=== PATIENT | male | born 1955 | race Caucasian/White ===

== ENCOUNTER 2016-09-22 15:34 | Emergency (ER) | payer MEDICARE, MEDICAID ==
[~2016-09-22] VITALS: Ht 177.8 cm; Wt 72.7 kg
[2016-09-22 15:38] VITALS: BP 129/76; PULSE 73; RESP 18; O2SAT 99
[2016-09-22] MEDS ORDERED: PEDS CEFTRIAXONE IV SCH (16:15)
--- NOTE | 2016-09-22 16:25 | ED.REPORT ---
HPI-NVD Peds Date of Service Sep 22, 2016 ED Provider: Stevan Ugarte PA-C Danyel is a 61-year-old male with a history of homelessness who presents with chief complaint of a starfish infection in his nose. She reports that several months ago he placed a starfish on his face. Some of the "starfish fluid" leaked into his nose. He reports he developed an infection consisting of a "epoxy-like substance" around the opening of his nostrils. He states that the infection spread to his eyes and his lungs. He states that his eyes feel gritty and is splinting a lot. He also states he does not feel his lungs fill up all the way. He reports fever. He also states that he is out of his medications. Reports being seen at several hospitals. He wishes to have a swab from his nose examined under microscope. He also states that he has been "chasing cranksters" [place] and [place] from "[place] to [facility] , I have been logging them all. They will all be in cuffs in a minute, when I decide." Nursing Notes Stated Complaint: MENTAL HEALTH EVALUATION Chief Complaint: General Complaint Nursing Notes Reviewed: Yes Allergies: Coded Allergies: acetaminophen (Verified Allergy, Mild, VOMITING, 09/22/16) ibuprofen (Verified Allergy, Mild, VOMITING, 09/22/16) nefazodone (Verified Allergy, Mild, BECOMES MANIC, 09/22/16) General Time Seen by MD: 15:55 Chief Complaint Other (nasal infection) Past Medical History Past Medical History Notes: Denies Review of Systems Review of Systems Note: Negative unless stated otherwise in history of present illness Physical Exam General: Well appearing, well developed, well nourished, no acute distress. Head: Atraumatic, normocephalic. No mastoid tenderness. Eyes: No scleral icterus or injection. No discharge. PERRL. Vision grossly intact. Nose: Symmetrical, nares patent without discharge. Small area of excoriation noted on posterior aspect of left naris. No frontal or maxillary sinus tenderness. Mouth/pharynx: normal dentition, mucus membranes moist. Tonsils 2+ and symmetrical, uvula midline. Pharynx noninjected, no cobblestoning or discharge. Voice clear. Neck: No tenderness or lymphadenopathy. Trachea midline. Respiratory: Regular rate and rhythm. Breath sounds present, clear to auscultation and equal bilaterally, all morris. No respiratory distress. No increased work of breathing, speaks in complete sentences. Cardiovascular: Regular rate and rhythm, without murmur, gallop or rub. No pedal edema. Gastrointestinal: Abdomen flat and non-tender without guarding or rebound. Bowel sounds normoactive. Skin: Warm and dry. Neurological: Grossly nonfocal. Psychological: Alert and oriented. Speech linear and not pressured. Displays some grandiosity, stating that he is "chasing cranksters [place] and [place]. There will be an cuffs and a minute, when I decide." Apparent delusions of "epoxy-like substance" around his nares. Initial Vital Signs Vital Signs (First) Date Time Temp Pulse Resp B/P Pulse Ox O2 Delivery O2 Flow Rate FiO2 09/22/16 15:38 37.0 73 18 129/76 99 Room Air Initial VS: Vital signs normal Re-Eval/Medical Decision Med Decision/Clinical Course 61-year-old male with history of bipolar disorder who has been seen several hospitals in the region for similar complaints of a "starfish infection" in his nose eyes and lungs. No findings on physical examination other than a small excoriation in the left naris. Patient had a discussion with Analia Banuelos. We agree appears not to be a threat to himself or others, however he does appear to be hypo-manic with some delusions of grandeur. Have little concern for a starfish related infection, pneumonia, pulmonary embolus. Offered to perform a chest x-ray to investigate the patient's complaint of dyspnea, which was declined. Patient prefers to be discharged to return to the correction in time for dinner. Patient wishes to have his psychiatric medications refilled, which was declined. Advised that this be performed by his primary care provider. Advised primary care follow-up, prior emergency return precautions. The patient verbalizes understanding of and consented to plan. Discharge & Departure Primary Impression: Hypomania Additional Impression: Nose irritation Disposition: Home Discharge Condition All VS Reviewed: Yes Condition: Stable Additional Instructions: Evaluation in the emergency department for a nasal infection. History and physical are reassuring that your symptoms are unlikely to be caused by an immediately dangerous condition. It does appear that you are experiencing a hypomanic episode. We do not believe you are a threat to herself or others. I believe you are stable and safe to be discharged. Continue treating the irritation in your nose with a lip balm or something similar as you have found helpful. It is important that you stop picking at the irritated area of your nose and allow it to heal. Follow-up with your primary care provider as soon as possible to have your medications refilled. Return to emergency department for any new or worsening symptoms including shortness of breath, chest pain, thoughts of hurting yourself or others, auditory/visual hallucinations. Referrals: OTHER,PHYSICIAN Yari García EDSupervising Provider for APC: Raisa Alexander MD, Seth PA-C Sep 22, 2016 16:25
[2016-09-22 17:23] VITALS: BP 129/76; PULSE 73; RESP 18; O2SAT 99
== END 2016-09-22 17:24 | disposition home or self-care (01) ==
LOC: SED 15:34
DX: F30.8 Other manic episodes (principal); J34.89 Other specified disorders of nose and nasal sinuses; R50.9 Fever, unspecified

== ENCOUNTER 2016-09-26 19:35 | Emergency (ER) | payer MEDICARE, MEDICAID ==
[~2016-09-26] VITALS: Ht 177.8 cm; Wt 68.2 kg
[2016-09-26 19:43] VITALS: BP 103/64; PULSE 71; RESP 16; O2SAT 100
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
[2016-09-26] MEDS ORDERED: ARIPiprazole 10 mg Tablet PO ONE (22:35)
[2016-09-26] MEDS ORDERED: carBAMazepine 100 mg ER12 Tablet PO ONE (22:35)
[2016-09-26] MEDS ORDERED: CRB100TCR PO (22:40)
[2016-09-26] MEDS ORDERED: ARIP20TA8 PO (22:40)
[2016-09-26 23:52] VITALS: BP 112/59; PULSE 75; RESP 18; O2SAT 98
== END 2016-09-26 23:53 | disposition home or self-care (01) ==
LOC: SED 19:35
DX: Z76.0 Encounter for issue of repeat prescription (principal); Z88.6 Allergy status to analgesic agent; Z88.8 Allergy status to other drugs, medicaments and biological substances

== ENCOUNTER 2016-11-02 16:22 | Emergency (ER) | payer MEDICARE, MEDICAID ==
[~2016-11-02] VITALS: Ht 177.8 cm; Wt 68.2 kg
[~2016-11-02 16:22] MED LIST: ARIP20TA8 PO; CRB100TCR PO
[2016-11-02 16:26] VITALS: BP 108/62; PULSE 80; RESP 16; O2SAT 97
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
[2016-11-02] MEDS ORDERED: FLUT9.9S NS (17:06)
[2016-11-02] MEDS ORDERED: FEXO-15 PO (17:06)
== END 2016-11-02 17:13 | disposition home or self-care (01) ==
LOC: SED 16:22
DX: J30.9 Allergic rhinitis, unspecified (principal); F31.9 Bipolar disorder, unspecified; F17.200 Nicotine dependence, unspecified, uncomplicated; Z59.0 Homelessness; Z88.8 Allergy status to other drugs, medicaments and biological substances